=== PATIENT | female | born 1950 | race Caucasian/White ===

== ENCOUNTER 2018-12-09 05:11 | Inpatient (IN) | payer MEDICARE, MEDICAID ==
[~2018-12-09] VITALS: Ht 154.9 cm; Wt 97.6 kg
[~2018-12-09 05:11] MED LIST: ALOG1TAB10 PO; AMLO-302 PO; DULO20CA45 PO; HYDR-3652 PO; IBUP-1223 PO; LISI1TAB3 PO; PREG50CA PO
[2018-12-09] MEDS ORDERED: LACTATED RINGERS 1,000 ML IV SCH (05:46)
[2018-12-09 06:10] VITALS: BP 135/84
[2018-12-09] MEDS ORDERED: MIDAZOLAM 1 MG/ML, 2ML ONE (06:13)
[2018-12-09] MEDS ORDERED: LIDOCAINE 1%-EPI 1:100K, 20ML ONE (06:19)
[2018-12-09] MEDS ORDERED: BACITRACIN OINT 500U/GM, 15 GM ONE (06:19)
[2018-12-09] MEDS ORDERED: SCOPOLAMINE PATCH, 1.5MG PATCH.TD72 TD ONE (06:31)
[2018-12-09] MEDS ORDERED: VASOPRESSIN 20 UNIT/ML, 1ML ONE (06:55)
[2018-12-09] MEDS ORDERED: DEXAMETHASONE 4 MG/ML, 1ML ONE (06:55)
[2018-12-09] MEDS ORDERED: CEFAZOLIN 1,000 MG ONE (06:55)
[2018-12-09] MEDS ORDERED: GLYCOPYRROLATE 0.2MG/1ML, 5ML ONE (06:55)
[2018-12-09] MEDS ORDERED: PROPOFOL 10 MG/ML, 50ML ONE (06:55)
[2018-12-09] MEDS ORDERED: PHENYLEPHRINE 10 MG/ML ONE (06:55)
[2018-12-09] MEDS ORDERED: ONDANSETRON 2MG/ML, 2ML ONE (06:55)
[2018-12-09] MEDS ORDERED: PROPOFOL 10 MG/ML, 20ML ONE (06:55)
[2018-12-09] MEDS ORDERED: ROCURONIUM 10 MG/ML,10ML ONE (06:55)
[2018-12-09] MEDS ORDERED: NEOSTIGMINE 1 MG/ML, 10ML ONE (06:55)
[2018-12-09] MEDS ORDERED: EPHEDRINE 50 MG/ML, 1ML ONE (06:55)
[2018-12-09] MEDS ORDERED: FENTANYL PF 250 MCG/5ML ONE (07:49)
[2018-12-09] MEDS ORDERED: hydrALAzine 20 MG/ML, 1ML IV PRN (08:00)
[2018-12-09] MEDS ORDERED: HYDROmorphone 2 MG/ML, 1ML IVPush PRN (08:00)
[2018-12-09] MEDS ORDERED: ALBUTEROL SULFATE 2.5 MG/3 ML NPPB PRN (08:00)
[2018-12-09] MEDS ORDERED: PROMETHAZINE 25 MG/ML, 1ML IV PRN (08:00)
[2018-12-09] MEDS ORDERED: MEPERIDINE/PF 25MG/0.5ML IVPush PRN (08:00)
[2018-12-09] MEDS ORDERED: DIAZEPAM 5 MG/ML, 2ML IVPush PRN (08:00)
[2018-12-09] MEDS ORDERED: ACETAMINOPHEN 325 MG TABLET PO PRN (08:00)
[2018-12-09] MEDS ORDERED: LABETALOL 5MG/ML, 20ML IV PRN (08:00)
[2018-12-09] MEDS ORDERED: FENTANYL PF 100 MCG/2ML IV PRN (08:00)
[2018-12-09] MEDS ORDERED: KETOROLAC 30 MG/1 ML IV PRN (08:00)
[2018-12-09] MEDS ORDERED: OXYcodone 5 MG/5 ML ORAL.SOL UDC PO PRN (08:00)
[2018-12-09] MEDS ORDERED: morphine SULFATE 10 MG/ML, 1ML IV PRN (10:30)
[2018-12-09] MEDS ORDERED: DIAZEPAM 5 MG TABLET PO PRN (10:30)
[2018-12-09] MEDS ORDERED: ONDANSETRON 2MG/ML, 2ML IV PRN (10:30)
[2018-12-09] MEDS ORDERED: OXYcodone IR 5MG TABLET PO PRN (11:00)
[2018-12-09] MEDS ORDERED: SODIUM CHLORIDE 0.9% 1,000 ML IV SCH (11:00)
[2018-12-09] MEDS: LISINOPRIL 10 MG TABLET PO SCH (11:41)
[2018-12-09] MEDS: HYDROCHLOROTHIAZIDE 12.5 MG CAPSULE PO SCH (11:48)
[2018-12-09] MEDS: PREGABALIN 25 MG CAPSULE PO SCH (11:48)
[2018-12-09] MEDS: ACETAMINOPHEN 500 MG TABLET PO SCH ×3 (11:48→23:15)
[2018-12-09] MEDS: KETOROLAC 30 MG/1 ML IV SCH ×2 (11:48→20:22)
[2018-12-09] MEDS: DULOXETINE 20 MG CAPSULE.DR PO SCH (11:48)
[2018-12-09] MEDS ORDERED: MAGNESIUM HYDROXIDE 8%, 30ML UDC PO PRN (12:00)
[2018-12-09] MEDS ORDERED: SENNA/DOCUSATE TABLET PO PRN (12:00)
[2018-12-09 13:26] VITALS: BP 89/56
[2018-12-09 14:45] VITALS: BP 95/61
[2018-12-09] MEDS: CEFAZOLIN PMX 2GM/50ML 50 ML IVPB SCH ×2 (15:44→23:15)
[2018-12-09 19:55] VITALS: BP 97/59
[2018-12-09] MEDS: DOCUSATE 100 MG CAPSULE PO SCH (20:22)
[2018-12-09] MEDS: ASPIRIN 81 MG TABLET EC PO SCH (20:22)
[2018-12-09] MEDS ORDERED: ATORVASTATIN 10 MG TABLET PO SCH (21:00)
[2018-12-09] MEDS ORDERED: AMLODIPINE 10 MG TAB PO SCH (21:00)
[2018-12-09 23:30] VITALS: BP 100/59
[2018-12-10 04:34] VITALS: BP 97/55
[2018-12-10] MEDS: ACETAMINOPHEN 500 MG TABLET PO SCH (04:45)
[2018-12-10] MEDS: KETOROLAC 30 MG/1 ML IV SCH (04:45)
[2018-12-10 07:54] VITALS: BP 94/60
[2018-12-10] MEDS: PREGABALIN 25 MG CAPSULE PO SCH (08:00)
[2018-12-10] MEDS: DULOXETINE 20 MG CAPSULE.DR PO SCH (08:00)
[2018-12-10] MEDS: HYDROCHLOROTHIAZIDE 12.5 MG CAPSULE PO SCH (08:01)
[2018-12-10] MEDS: ASPIRIN 81 MG TABLET EC PO SCH (08:01)
[2018-12-10] MEDS: DOCUSATE 100 MG CAPSULE PO SCH (08:01)
[2018-12-10] MEDS: LISINOPRIL 10 MG TABLET PO SCH (08:01)
[2018-12-10] MEDS ORDERED: MULTIVITAMINS/MINERALS TABLET PO SCH (09:00)
[2018-12-10] MEDS ORDERED: SODIUM CHLORIDE 0.9% 1,000 ML IV SCH (11:00)
== END 2018-12-10 10:48 | disposition home or self-care (01) | DRG 483 ==
LOC: ORIP 05:11 → 4NOR 10:02 → DCLOUNGE 12-10 10:33
PROVIDERS: ADMIT Orthopaedic Surgery; ATTEND Orthopaedic Surgery
PROC: 3E0T3BZ Introduction of Anesthetic Agent into Peripheral Nerves and Plexi, Percutaneous Approach (ICD-10-PCS; 2018-12-09)
PROC: 0LS40ZZ Reposition Left Upper Arm Tendon, Open Approach (ICD-10-PCS; 2018-12-09)
PROC: 0RRK00Z Replacement of Left Shoulder Joint with Reverse Ball and Socket Synthetic Substitute, Open Approach (ICD-10-PCS; principal; 2018-12-09 07:00)
DX: M75.102 Unspecified rotator cuff tear or rupture of left shoulder, not specified as traumatic (principal); Z68.41 Body mass index [BMI] 40.0-44.9, adult; E78.00 Pure hypercholesterolemia, unspecified; E11.9 Type 2 diabetes mellitus without complications; M19.90 Unspecified osteoarthritis, unspecified site; F32.9 Major depressive disorder, single episode, unspecified; F41.9 Anxiety disorder, unspecified; I10 Essential (primary) hypertension; E66.9 Obesity, unspecified
CPT/HCPCS: 36415; 82962; 85014; 85018; C1713; C1776; G0378; J0690; J1100; J1885; J2250; J2405; J2704; J2710; J3010; J3490; C1769; J2370; J7030; J7120

== ENCOUNTER → 2020-10-09 | Outpatient (CLI) | payer MEDICARE, MEDICAID ==
[~2020-10-09] MED LIST changes: +DIPH-419 PO; +LISI1TAB23 PO; -LISI1TAB3 PO; +METF500T17 PO
[2020-10-09 15:21] LABS: BASOPHILS % (AUTO) 1 % (0-1); EOSINOPHILS % (AUTO) 2 % (1-7); LYMPHOCYTES % (AUTO) 35 % (22-44); MEAN CORPUSCULAR HEMOGLOBIN 27.5 pg (27.0-34.8); MEAN CORPUSCULAR HGB CONC 32.3 g/dL (32.4-35.8); MEAN PLATELET VOLUME 7.3 fL (7.4-10.4); MONOCYTES % (AUTO) 7 % (2-9); NEUTROPHILS % (AUTO) 55 % (42-75); PLATELET COUNT 380 x10^3/uL (130-400); RED CELL DISTRIBUTION WIDTH 16.4 % (9.6-15.2)
[2020-10-09 15:23] LABS: MD NO
[2020-10-09 15:33] LABS: INTERNATIONAL NORMALIZED RATIO 1.01 (0.93-1.1); PROTHROMBIN TIME 10.7 Seconds (9.6-11.5)
[2020-10-09 15:34] LABS: ANION GAP 6 mmol/L (5-15); CALCIUM 9.8 mg/dL (8.5-10.1); CHLORIDE 104 mmol/L (98-107)
[2020-10-09 15:38] LABS: ALANINE AMINOTRANSFERASE 24 U/L (12-78); ALKALINE PHOSPHATASE 143 U/L (45-117); BILIRUBIN,TOTAL 0.3 mg/dL (0.2-1.0); CREATININE 1.02 mg/dL (0.55-1.02); TOTAL PROTEIN 7.9 g/dL (6.4-8.2)
[2020-10-09 15:43] LABS: MICROSCOPIC NOT IND
== END | disposition home or self-care (01) ==
LOC: STAR 14:14
PROVIDERS: ATTEND Neurological Surgery
DX: Z01.810 Encounter for preprocedural cardiovascular examination (principal); Z01.811 Encounter for preprocedural respiratory examination; Z01.812 Encounter for preprocedural laboratory examination; M43.16 Spondylolisthesis, lumbar region; M54.16 Radiculopathy, lumbar region; M54.5 Low back pain; R79.1 Abnormal coagulation profile; R82.90 Unspecified abnormal findings in urine; R94.31 Abnormal electrocardiogram [ECG] [EKG]; I49.1 Atrial premature depolarization; Z96.612 Presence of left artificial shoulder joint
CPT/HCPCS: 36415; 71046; 80053; 81003; 85025; 85610; 85730; 93005

== ENCOUNTER → 2020-10-11 | Outpatient (CLI) | payer MEDICAID, MEDICARE | END | disposition home or self-care (01) | LOC: STAR 14:29 | PROVIDERS: ATTEND Anesthesiology | DX: Z20.828 Contact with and (suspected) exposure to other viral communicable diseases (principal) | CPT/HCPCS: 87635 ==

== ENCOUNTER → 2021-02-25 | Outpatient (CLI) | payer MEDICARE ==
[~2021-02-25] MED LIST changes: +HYDR-1067 PO; -HYDR-3652 PO; +METH-640 PO; +OXYB5TAB10 PO; +OXYC1TAB18 PO
[2021-02-25 12:14] LABS: ALANINE AMINOTRANSFERASE 21 U/L (12-78); ANION GAP 5 mmol/L (5-15); CALCIUM 9.9 mg/dL (8.5-10.1); CHLORIDE 104 mmol/L (98-107); CREATININE 0.82 mg/dL (0.55-1.02)
[2021-02-25 12:17] LABS: ALKALINE PHOSPHATASE 139 U/L (45-117); BILIRUBIN,TOTAL 0.3 mg/dL (0.2-1.0); TOTAL PROTEIN 8.6 g/dL (6.4-8.2)
== END | disposition home or self-care (01) ==
LOC: STAR 10:49
PROVIDERS: ATTEND Orthopaedic Surgery
DX: Z01.818 Encounter for other preprocedural examination (principal); M25.571 Pain in right ankle and joints of right foot; M12.871 Other specific arthropathies, not elsewhere classified, right ankle and foot; Z20.822 Contact with and (suspected) exposure to COVID-19
CPT/HCPCS: 36415; 80053; 93005; U0003

== ENCOUNTER → 2021-02-27 | Outpatient (CLI) | payer MEDICARE | END | disposition home or self-care (01) | LOC: CFH 12:43 | PROVIDERS: ATTEND Orthopaedic Surgery | DX: M19.071 Primary osteoarthritis, right ankle and foot (principal); M25.774 Osteophyte, right foot; M77.31 Calcaneal spur, right foot ==

== ENCOUNTER 2021-03-01 11:08 | Inpatient (IN) | payer MEDICARE ==
[~2021-03-01] VITALS: Ht 154.9 cm; Wt 97.0 kg
[~2021-03-01 11:08] MED LIST changes: +EPHEDRINE 50 MG/ML, 1ML IVPush PRN; +FENTANYL PF 100 MCG/2ML IV PRN; +HYDROmorphone 1 MG/ML, 1ML INJ IVPush PRN; +LABETALOL 5MG/ML, 20ML IV PRN; +ONDANSETRON 2MG/ML, 2ML IVPush PRN; +OXYcodone 5 MG/5 ML ORAL.SOL UDC PO PRN; +PROMETHAZINE 25 MG/ML, 1ML IVPush PRN; +hydrALAzine 20 MG/ML, 1ML IV PRN
[2021-03-01] MEDS ORDERED: CHLORHEXIDINE 15 ML UDC ONE (11:52)
[2021-03-01] MEDS ORDERED: LACTATED RINGERS 1,000 ML IV SCH (12:00)
[2021-03-01] MEDS ORDERED: CHLORHEXIDINE 15 ML UDC PO ONE (12:00)
[2021-03-01] MEDS ORDERED: BUPIVACAINE/PF 0.5% ONE (12:14)
[2021-03-01] MEDS ORDERED: LIDOCAINE 1%, 20ML ONE (12:14)
[2021-03-01] MEDS ORDERED: TRANEXAMIC ACID 100 MG/ML, 10ML ONE (12:14)
[2021-03-01] MEDS ORDERED: VANCOMYCIN 1,000 MG ONE (12:26)
[2021-03-01] MEDS ORDERED: FENTANYL PF 100 MCG/2ML ONE ×2 (12:27→16:04)
[2021-03-01] MEDS ORDERED: MIDAZOLAM 1 MG/ML, 2ML ONE (12:27)
[2021-03-01] MEDS ORDERED: METOPROLOL 1 MG/ML, 5ML ONE (13:11)
[2021-03-01] MEDS ORDERED: FENTANYL PF 250 MCG/5ML ONE ×2 (13:36→14:57)
[2021-03-01] MEDS ORDERED: hydrALAzine 20 MG/ML, 1ML IV PRN ×2 (14:00→14:30)
[2021-03-01] MEDS ORDERED: KETOROLAC 30 MG/1 ML IV PRN ×2 (14:00→14:30)
[2021-03-01] MEDS ORDERED: DIAZEPAM 5 MG/ML, 2ML IVPush PRN ×2 (14:00→14:30)
[2021-03-01] MEDS ORDERED: ACETAMINOPHEN 325 MG TABLET PO PRN ×2 (14:00→14:30)
[2021-03-01] MEDS ORDERED: FENTANYL PF 100 MCG/2ML IV PRN (14:00)
[2021-03-01] MEDS ORDERED: ALBUTEROL SULFATE 2.5 MG/3 ML NPPB PRN ×2 (14:00→14:30)
[2021-03-01] MEDS ORDERED: LABETALOL 5MG/ML, 20ML IV PRN ×2 (14:00→14:30)
[2021-03-01] MEDS ORDERED: HYDROmorphone 2 MG/ML, 1ML IVPush PRN ×2 (14:00→14:30)
[2021-03-01] MEDS ORDERED: OXYcodone 5 MG/5 ML ORAL.SOL UDC PO PRN ×2 (14:00→14:30)
[2021-03-01] MEDS ORDERED: PROMETHAZINE 25 MG/ML, 1ML IV PRN ×2 (14:00→14:30)
[2021-03-01] MEDS ORDERED: MEPERIDINE/PF 25MG/0.5ML IVPush PRN ×2 (14:00→14:30)
[2021-03-01] MEDS ORDERED: SUCCINYLCHOLINE 20 MG/ML, 10ML ONE (15:40)
[2021-03-01] MEDS ORDERED: DEXAMETHASONE 4 MG/ML, 1ML ONE (15:40)
[2021-03-01] MEDS ORDERED: ONDANSETRON 2MG/ML, 2ML ONE (15:40)
[2021-03-01] MEDS ORDERED: CEFAZOLIN 1,000 MG ONE (15:40)
[2021-03-01] MEDS ORDERED: ROCURONIUM 10MG/ML,5ML ONE (15:40)
[2021-03-01] MEDS ORDERED: NEOSTIGMINE 1 MG/ML, 10ML ONE (15:40)
[2021-03-01] MEDS ORDERED: PROPOFOL 10 MG/ML, 20ML ONE (15:40)
[2021-03-01] MEDS ORDERED: GLYCOPYRROLATE 0.2MG/1ML, 5ML ONE (15:40)
[2021-03-01] MEDS ORDERED: ACETAMINOPHEN 650 MG/20.3 ML UDC ONE (16:05)
[2021-03-01] MEDS ORDERED: OXYcodone 5 MG/5 ML ORAL.SOL UDC ONE (16:05)
[2021-03-01] MEDS: FENTANYL PF 100 MCG/2ML IV PRN ×2 (16:10→16:25)
[2021-03-01] MEDS ORDERED: ROPIvacaine/PF 0.2%, 100ML 550 ML (check volume) INJ ONE (16:30)
[2021-03-01] MEDS ORDERED: hydrALAzine 20 MG/ML, 1ML ONE (16:38)
[2021-03-01] MEDS ORDERED: KETOROLAC 30 MG/1 ML ONE (16:38)
[2021-03-01] MEDS ORDERED: MEPERIDINE/PF 25MG/ML,1ML ONE (16:50)
[2021-03-01] MEDS ORDERED: BISACODYL 10 MG SUPP PR PRN (18:00)
[2021-03-01] MEDS ORDERED: HYDROcodone/APAP 5/325 TABLET PO PRN (18:00)
[2021-03-01] MEDS ORDERED: GLUCAGON 1 MG IM PRN (18:00)
[2021-03-01] MEDS ORDERED: DEXTROSE 4 GM TAB.CHEW PO PRN (18:00)
[2021-03-01] MEDS ORDERED: DEXTROSE 50%, 50ML SYRINGE IVPush PRN (18:00)
[2021-03-01] MEDS ORDERED: LABETALOL 5MG/ML, 20ML IVPush PRN (18:00)
[2021-03-01] MEDS ORDERED: hydrALAzine 20 MG/ML, 1ML IVPush PRN (18:00)
[2021-03-01] MEDS ORDERED: ENALAPRILAT 1.25 MG/ML, 2ML IVPush PRN (18:00)
[2021-03-01] MEDS ORDERED: morphine SULFATE 10 MG/ML, 1ML IVPush PRN (18:00)
[2021-03-01] MEDS ORDERED: ONDANSETRON 2MG/ML, 2ML IVPush PRN (18:00)
[2021-03-01] MEDS ORDERED: HYDROmorphone 1 MG/ML, 1ML INJ IM PRN (19:30)
[2021-03-01] MEDS: LACTATED RINGERS 1,000 ML IV SCH (19:30)
[2021-03-01 19:38] VITALS: BP 157/78
[2021-03-01] MEDS: INSULIN LISPRO 100 UNITS/ML, PEN SQ-INSULIN SCH (20:52)
[2021-03-01] MEDS: PREGABALIN 50 MG CAPSULE PO SCH (20:53)
[2021-03-01] MEDS: SODIUM CHLORIDE FLUSH 10ML SYR IVF SCH (21:00)
[2021-03-01] MEDS ORDERED: PREGABALIN 50 MG CAPSULE PO SCH (21:00)
[2021-03-01] MEDS: ONDANSETRON 2MG/ML, 2ML IV PRN (21:46)
[2021-03-01] MEDS: DIPHENHYDRAMINE 50 MG CAPSULE PO PRN (22:51)
[2021-03-01] MEDS: ACETAMINOPHEN 325 MG TABLET PO PRN (22:53)
[2021-03-02 00:17] VITALS: BP 162/82
[2021-03-02] MEDS: KETOROLAC 30 MG/1 ML IV SCH ×3 (01:10→17:07)
[2021-03-02 03:42] VITALS: BP 119/69
[2021-03-02] MEDS: LACTATED RINGERS 1,000 ML IV SCH ×4 (05:25→22:10)
[2021-03-02] MEDS: INSULIN LISPRO 100 UNITS/ML, PEN SQ-INSULIN SCH ×4 (07:00→21:27)
[2021-03-02 07:08] VITALS: BP 132/76
[2021-03-02] MEDS ORDERED: DULOXETINE 20 MG CAPSULE.DR PO SCH (09:00)
[2021-03-02] MEDS ORDERED: HYDROCHLOROTHIAZIDE 12.5 MG CAPSULE PO SCH (09:00)
[2021-03-02] MEDS ORDERED: AMLODIPINE 10 MG TAB PO SCH (09:00)
[2021-03-02 09:21] LABS: ALANINE AMINOTRANSFERASE 16 U/L (12-78); ALBUMIN 3.1 g/dL (3.4-5.0); ANION GAP 2 mmol/L (5-15); CALCIUM 8.4 mg/dL (8.5-10.1); CHLORIDE 106 mmol/L (98-107); CREATININE 0.63 mg/dL (0.55-1.02)
[2021-03-02 09:22] LABS: ALKALINE PHOSPHATASE 95 U/L (45-117); BILIRUBIN,TOTAL 0.5 mg/dL (0.2-1.0); TOTAL PROTEIN 6.4 g/dL (6.4-8.2)
[2021-03-02] MEDS: metFORMIN 500 MG TABLET PO SCH (09:43)
[2021-03-02] MEDS: DULOXETINE 20 MG CAPSULE.DR PO SCH (09:44)
[2021-03-02] MEDS: SODIUM CHLORIDE FLUSH 10ML SYR IVF SCH ×2 (09:44→21:23)
[2021-03-02] MEDS: ATORVASTATIN 10 MG TABLET PO SCH (09:44)
[2021-03-02] MEDS: LISINOPRIL 10 MG TABLET PO SCH (09:44)
[2021-03-02] MEDS: PREGABALIN 50 MG CAPSULE PO SCH ×3 (09:44→21:21)
[2021-03-02] MEDS: OXYBUTYNIN CHLORIDE 5 MG TABLET PO SCH (09:44)
[2021-03-02] MEDS: ASPIRIN 81 MG TABLET CHEW PO SCH ×2 (09:53→21:22)
[2021-03-02 13:15] VITALS: BP 153/77
[2021-03-02] MEDS: ACETAMINOPHEN 325 MG TABLET PO PRN (13:42)
[2021-03-02] MEDS ORDERED: KETOROLAC 30 MG/1 ML ONE (17:04)
[2021-03-02] MEDS: ONDANSETRON 2MG/ML, 2ML IV PRN (17:07)
[2021-03-02] MEDS: OXYcodone/APAP 5/325MG TABLET PO PRN ×2 (17:08→21:22)
[2021-03-02 18:44] VITALS: BP 134/73
[2021-03-02] MEDS: DOCUSATE 100 MG CAPSULE PO PRN (21:21)
[2021-03-03 02:28] VITALS: BP 166/80
[2021-03-03 02:40] VITALS: BP 152/89
[2021-03-03] MEDS: OXYcodone/APAP 5/325MG TABLET PO PRN ×4 (04:07→21:36)
[2021-03-03] MEDS: LACTATED RINGERS 1,000 ML IV SCH ×3 (05:40→19:00)
[2021-03-03] MEDS: INSULIN LISPRO 100 UNITS/ML, PEN SQ-INSULIN SCH ×4 (06:51→21:00)
[2021-03-03 07:48] VITALS: BP 147/76
[2021-03-03] MEDS: POLYETHYLENE GLYCOL 17 GM PACKET PO PRN (11:06)
[2021-03-03] MEDS: ASPIRIN 81 MG TABLET CHEW PO SCH ×2 (11:06→21:36)
[2021-03-03] MEDS: PREGABALIN 50 MG CAPSULE PO SCH ×3 (11:07→21:36)
[2021-03-03] MEDS: OXYBUTYNIN CHLORIDE 5 MG TABLET PO SCH (11:07)
[2021-03-03] MEDS: DULOXETINE 20 MG CAPSULE.DR PO SCH (11:07)
[2021-03-03] MEDS: LISINOPRIL 10 MG TABLET PO SCH (11:08)
[2021-03-03] MEDS: metFORMIN 500 MG TABLET PO SCH (11:08)
[2021-03-03] MEDS: ATORVASTATIN 10 MG TABLET PO SCH (11:08)
[2021-03-03] MEDS: DOCUSATE 100 MG CAPSULE PO PRN ×2 (11:09→21:36)
[2021-03-03] MEDS: SODIUM CHLORIDE FLUSH 10ML SYR IVF SCH ×2 (11:18→21:37)
[2021-03-03 13:38] VITALS: BP 137/70
[2021-03-03] MEDS: ONDANSETRON 2MG/ML, 2ML IV PRN (16:52)
[2021-03-03 19:21] VITALS: BP 128/74
[2021-03-04] MEDS: LACTATED RINGERS 1,000 ML IV SCH ×4 (00:50→21:40)
[2021-03-04 01:25] VITALS: BP 148/77
[2021-03-04] MEDS: OXYcodone/APAP 5/325MG TABLET PO PRN ×5 (03:26→21:00)
[2021-03-04] MEDS: INSULIN LISPRO 100 UNITS/ML, PEN SQ-INSULIN SCH ×4 (07:26→21:00)
[2021-03-04 07:57] VITALS: BP 167/91
[2021-03-04] MEDS: POLYETHYLENE GLYCOL 17 GM PACKET PO PRN (08:18)
[2021-03-04] MEDS: DOCUSATE 100 MG CAPSULE PO PRN (08:19)
[2021-03-04] MEDS: ASPIRIN 81 MG TABLET CHEW PO SCH ×2 (08:19→20:59)
[2021-03-04] MEDS: OXYBUTYNIN CHLORIDE 5 MG TABLET PO SCH (08:19)
[2021-03-04] MEDS: SODIUM CHLORIDE FLUSH 10ML SYR IVF SCH ×2 (08:19→21:00)
[2021-03-04] MEDS: metFORMIN 500 MG TABLET PO SCH (08:20)
[2021-03-04] MEDS: PREGABALIN 50 MG CAPSULE PO SCH ×3 (08:20→20:59)
[2021-03-04] MEDS: LISINOPRIL 10 MG TABLET PO SCH (08:20)
[2021-03-04] MEDS: ATORVASTATIN 10 MG TABLET PO SCH (08:20)
[2021-03-04] MEDS: DULOXETINE 20 MG CAPSULE.DR PO SCH (08:20)
[2021-03-04] MEDS ORDERED: AMLO-150 PO (10:23)
[2021-03-04] MEDS: AMLODIPINE 5 MG TABLET PO SCH (11:04)
[2021-03-04 14:52] VITALS: BP 150/84
[2021-03-04 18:52] VITALS: BP 159/85
[2021-03-04] MEDS: DIPHENHYDRAMINE 50 MG CAPSULE PO PRN (20:59)
[2021-03-05 01:40] VITALS: BP 158/65
[2021-03-05] MEDS: OXYcodone/APAP 5/325MG TABLET PO PRN ×5 (03:13→21:34)
[2021-03-05] MEDS: LACTATED RINGERS 1,000 ML IV SCH ×3 (03:30→16:03)
[2021-03-05] MEDS: INSULIN LISPRO 100 UNITS/ML, PEN SQ-INSULIN SCH ×4 (06:37→21:00)
[2021-03-05] MEDS: DULOXETINE 20 MG CAPSULE.DR PO SCH (07:41)
[2021-03-05] MEDS: PREGABALIN 50 MG CAPSULE PO SCH ×3 (07:41→21:34)
[2021-03-05] MEDS: OXYBUTYNIN CHLORIDE 5 MG TABLET PO SCH (07:41)
[2021-03-05] MEDS: ATORVASTATIN 10 MG TABLET PO SCH (07:41)
[2021-03-05] MEDS: SODIUM CHLORIDE FLUSH 10ML SYR IVF SCH ×2 (07:43→21:00)
[2021-03-05] MEDS: AMLODIPINE 5 MG TABLET PO SCH (07:43)
[2021-03-05] MEDS: LISINOPRIL 10 MG TABLET PO SCH (07:43)
[2021-03-05] MEDS: metFORMIN 500 MG TABLET PO SCH (07:43)
[2021-03-05 07:46] VITALS: BP 179/82
[2021-03-05] MEDS: ASPIRIN 81 MG TABLET CHEW PO SCH ×2 (07:46→21:34)
[2021-03-05 08:56] VITALS: BP 157/77
[2021-03-05 13:00] VITALS: BP 139/77
[2021-03-05] MEDS ORDERED: OXYC5CAP2 PO (15:26)
[2021-03-05] MEDS ORDERED: GABA300C PO (15:27)
[2021-03-05] MEDS ORDERED: HYDR50CA PO (15:28)
[2021-03-05 19:12] VITALS: BP 152/84
[2021-03-05] MEDS: DIPHENHYDRAMINE 50 MG CAPSULE PO PRN (21:34)
[2021-03-06] MEDS: LACTATED RINGERS 1,000 ML IV SCH ×2 (00:20→00:31)
[2021-03-06 00:49] VITALS: BP 150/84
[2021-03-06] MEDS: OXYcodone/APAP 5/325MG TABLET PO PRN ×3 (03:03→11:48)
[2021-03-06] MEDS: INSULIN LISPRO 100 UNITS/ML, PEN SQ-INSULIN SCH ×2 (07:00→11:00)
[2021-03-06 07:30] VITALS: BP 164/80
[2021-03-06] MEDS: LISINOPRIL 10 MG TABLET PO SCH (07:37)
[2021-03-06] MEDS: ATORVASTATIN 10 MG TABLET PO SCH (07:37)
[2021-03-06] MEDS: metFORMIN 500 MG TABLET PO SCH (07:37)
[2021-03-06] MEDS: ASPIRIN 81 MG TABLET CHEW PO SCH (07:37)
[2021-03-06] MEDS: DULOXETINE 20 MG CAPSULE.DR PO SCH (07:37)
[2021-03-06] MEDS: OXYBUTYNIN CHLORIDE 5 MG TABLET PO SCH (07:37)
[2021-03-06] MEDS: AMLODIPINE 5 MG TABLET PO SCH (07:37)
[2021-03-06] MEDS: PREGABALIN 50 MG CAPSULE PO SCH (07:38)
[2021-03-06] MEDS: SODIUM CHLORIDE FLUSH 10ML SYR IVF SCH (07:38)
[2021-03-06] MEDS: POLYETHYLENE GLYCOL 17 GM PACKET PO PRN (07:44)
[2021-03-06] MEDS ORDERED: ATOR10TA9 PO (10:07)
[2021-03-06] MEDS ORDERED: ASPI81TA45 PO (10:07)
[2021-03-06] MEDS ORDERED: LISI-167 PO (10:08)
[2021-03-06 10:09] VITALS: BP 144/80
[2021-03-06] MEDS ORDERED: INSU100C SQ-INSULIN (10:09)
[2021-03-06] MEDS ORDERED: BISA10SU4 PR (10:10)
[2021-03-06] MEDS ORDERED: ACET325T26 PO (10:10)
[2021-03-06] MEDS ORDERED: DOCU100C33 PO (10:11)
[2021-03-06] MEDS ORDERED: LABE20DI IVPush (10:12)
== END 2021-03-06 12:12 | DRG 469 ==
LOC: OUT 11:08 → 4NE 18:42 → OBSVTOIN 19:00 → OUT 19:34
PROVIDERS: ADMIT Orthopaedic Surgery; ATTEND Hospitalist
PROC: 0QBL0ZZ Excision of Right Tarsal, Open Approach (ICD-10-PCS; 2021-03-01)
PROC: 0LSN0ZZ Reposition Right Lower Leg Tendon, Open Approach (ICD-10-PCS; 2021-03-01)
PROC: 0QUG07Z Supplement Right Tibia with Autologous Tissue Substitute, Open Approach (ICD-10-PCS; 2021-03-01)
PROC: 0SRF0JZ Replacement of Right Ankle Joint with Synthetic Substitute, Open Approach (ICD-10-PCS; principal; 2021-03-01 13:00)
DX: M19.071 Primary osteoarthritis, right ankle and foot (principal); I16.0 Hypertensive urgency; E11.42 Type 2 diabetes mellitus with diabetic polyneuropathy; E78.5 Hyperlipidemia, unspecified; F12.90 Cannabis use, unspecified, uncomplicated; G89.4 Chronic pain syndrome; I10 Essential (primary) hypertension; I97.3 Postprocedural hypertension; Z66 Do not resuscitate; Z96.611 Presence of right artificial shoulder joint; Z90.710 Acquired absence of both cervix and uterus; Z79.899 Other long term (current) drug therapy; Z79.891 Long term (current) use of opiate analgesic; Z79.01 Long term (current) use of anticoagulants
CPT/HCPCS: 76000; 80053; 82962; 83036; C1713; G0378; J0690; J1100; J1885; J2175; J2250; J2405; J2704; J2710; J2795; J3010; J3370; C1776; J0330; J0360; J7120